=== PATIENT | male | born 1980 ===

== ENCOUNTER 2025-08-28 06:33 | Day surgery (SDC) | payer BC, SELFPAY | END 2025-08-28 12:39 | disposition home or self-care (01) | LOC: GI 06:33 | PROVIDERS: ATTENDING PHYSICIAN Internal Medicine | DX: D50.9 Iron deficiency anemia, unspecified (principal); K62.5 Hemorrhage of anus and rectum; K64.8 Other hemorrhoids; K31.89 Other diseases of stomach and duodenum; K29.60 Other gastritis without bleeding; B96.81 Helicobacter pylori [H. pylori] as the cause of diseases classified elsewhere | CPT/HCPCS: 45378; 43239; 88305; 88342 ==